=== PATIENT | female | born 1930 | race Caucasian/White ===

== ENCOUNTER 2020-06-18 08:53 | Day surgery (SDCO) | payer OTHER ==
[~2020-06-18] VITALS: Ht 160 cm; Wt 70.1 kg
[~2020-06-18 08:53] MED LIST: ELIQUIS2.5 MG PO; LASIX20 MG PO; LIPITOR20 MG PO; LOPRESSOR25 MG PO; LOPRESSOR50 MG PO; NORVASC2.5 MG PO; PRINIVIL20 MG PO; SYNTHROID25 MCG PO; UROCIT-K10 MEQ PO; ZETIA10 MG PO
[2020-06-18] MEDS ORDERED: NORCO 5-325 TA1 EACH PO ×2 (10:05→10:32)
[2020-06-18 10:25] LABS: HCT 38.1 % (37.0-47.0); HGB 12.6 g/dl (12.5-16.0); MCH 31.1 pg (25.0-31.0); MCHC 33.1 g/dL (32.0-36.0); MCV 94.1 fL (78.0-100.0); MPV 10.2 fL (6.0-9.5); RBC 4.05 M/uL (4.20-5.40); RDW 13.2 % (11.5-14.0); WBC 4.7 K/uL (4.0-10.5)
[2020-06-18 10:44] LABS: BUN/CREAT RATIO (CALC) 14.9 RATIO; CREATININE 0.94 mg/dL (0.51-0.95); POTASSIUM 3.7 mmol/L (3.5-5.1)
--- NOTE | 2020-06-18 18:22 | NUR ---
PT NOT MAINTAINING OXYGEN SAT ON ROOM AIR. HAS DROPPED LOW 78% WHEN SLEEPING. OXYGEN LEVEL USUALLY ABOVE 90% IF AWAKE ON RA. ANESTHESIA AND DR. BEE NOTIFIED. WANTED HOSPITALIST TO ADMIT PT. DR. SOUZA ADMITTED TO INPATIENT TCU. PT VOMITIED AT 1540 DARK GREEN SMALL AMOUNT. ZOFRAN GIVEN AT 1541. PT STATES PAIN IS TOLERABLE, REFUSES TO ATTEMPT VOIDING, IV AND DRESSING C/D/I. REPORT TO [email or web address]
[2020-06-19 06:04] LABS: BASOPHIL 0.4 % (0-2); EOSINOPHIL 0.5 % (0-7); HCT 34.4 % (37.0-47.0); HGB 11.2 g/dl (12.5-16.0); LYMPHOCYTE 19.3 % (15-48); MCH 30.8 pg (25.0-31.0); MCHC 32.6 g/dL (32.0-36.0); MCV 94.5 fL (78.0-100.0); MONOCYTE 12.5 % (0-12); MPV 10.6 fL (6.0-9.5); NEUTROPHIL 66.9 % (41-80); NRBC 0; PLT 205 K/uL (150-400); RBC 3.64 M/uL (4.20-5.40); RDW 13.1 % (11.5-14.0); WBC 5.6 K/uL (4.0-10.5)
[2020-06-19 06:18] LABS: ALBUMIN 2.8 g/dL (3.4-5.0); BILIRUBIN - TOTAL 1.2 mg/dL (0.2-1.0); BUN/CREAT RATIO (CALC) 17.9 RATIO; CREATININE 0.78 mg/dL (0.51-0.95); GLOBULIN (CALCULATION) 3.5 g/dL; POTASSIUM 3.7 mmol/L (3.5-5.1); TOTAL PROTEIN 6.3 g/dL (6.4-8.2)
== END 2020-06-19 17:58 | disposition home health service (06) ==
LOC: FAS 08:53 → FTCU 17:29
PROVIDERS: Anesthesiology; Legal Medicine; Nurse Practitioner; ADMIT Internal Medicine
DX: S52.572A Other intraarticular fracture of lower end of left radius, initial encounter for closed fracture (principal); S52.571A Other intraarticular fracture of lower end of right radius, initial encounter for closed fracture; R09.02 Hypoxemia; I10 Essential (primary) hypertension; E78.5 Hyperlipidemia, unspecified; E03.9 Hypothyroidism, unspecified; Z98.890 Other specified postprocedural states; Z79.899 Other long term (current) drug therapy; W19.XXXA Unspecified fall, initial encounter; Y92.009 Unspecified place in unspecified non-institutional (private) residence as the place of occurrence of the external cause; Z20.822 Contact with and (suspected) exposure to COVID-19; Z88.0 Allergy status to penicillin; Z95.1 Presence of aortocoronary bypass graft; Z95.0 Presence of cardiac pacemaker
CPT/HCPCS: 36415; 36600; 73100; 80048; 80053; 82803; 85025; 94667; 94668; 97167; 97535; C1713; G0378; J0690; J1100; J1170; J2250; J2405; J2704; J2795; J3010; J7120; U0002